=== PATIENT | male | born 1965 | race Caucasian/White ===

== ENCOUNTER 2020-07-07 21:02 | Inpatient (IN) ==
[2020-07-07 21:27] LABS: Basophils # (auto) 0.02 K/uL (0-0.2); Basophils % (auto) 0.2 %; Eosinophils # (auto) 0.16 K/uL (0-0.5); Eosinophils % (auto) 1.3 %; Hematocrit (blood only) 50.3 % (42-52); Hemoglobin 17.6 g/dL (14.0-18.0); Immature Granulocytes # (auto) 0.03 K/uL (0.00-0.02); Immature Granulocytes % (auto) 0.2 %; Lymphocytes % (auto) 24.6 %; Mean Corpuscular Hemoglobin 32.6 pg (25-34); Mean Corpuscular Volume 93.1 fL (80-100); Mean Platelet Volume 10.6 fL (7.4-10.4); Monocytes # (auto) 0.73 K/uL (0.11-0.59); Neutrophils # (auto) 8.27 K/uL (1.4-6.5); Neutrophils % (auto) 67.7 %; Platelet Count 209 K/uL (130-400); RDW Coefficient of Variation 13.1 % (11.5-14.5); RDW Standard Deviation 44.6 fL (36.4-46.3); White Blood Count 12.21 K/uL (4.8-10.8)
[2020-07-07 21:38] LABS: Partial Thromboplastin Ratio 0.9; Partial Thromboplastin Time 24.5 Seconds (21.0-31.0)
[2020-07-07 21:53] LABS: Alanine Aminotransferase 26 U/L (12-78); Albumin Globulin Ratio 1.1 (0.9-2); Albumin Level 3.7 gm/dl (3.4-5.0); Alkaline Phosphatase 91 U/L (45-117); Aspartate Aminotransferase 15 U/L (15-37); BUN Creatinine Ratio 17.8 (10-20); Bilirubin,Total 0.4 mg/dl (0.2-1); Blood Urea Nitrogen 17 mg/dl (7-18); Carbon Dioxide 25 mmol/L (21-32); Chloride 105 mmol/L (98-107); Est GFR (African American) 101.4 ml/min; Est GFR (Non-African American) 87.5 ml/min; Globulin 3.4 gm/dl (2.5-4.0); Glucose 215 mg/dl (70-99); Lipase 262 U/L (73-393); Potassium 3.9 mmol/L (3.5-5.1); Sodium 136 mmol/L (136-145); Total Protein 7.1 gm/dl (6.4-8.2); Troponin I < 0.015 ng/ml (0-0.045)
--- NOTE | 2020-07-07 23:04 | Emergency Department Note ---
Impression & Plan Chest pain, Non-ST elevation NM (NSTEMI) ED Provider Note Provider: Harrison Fowler MD DATE OF SERVICE: 07/07/2020 CHIEF COMPLAINT: Chest pain HISTORY OF PRESENT ILLNESS: Patient is a 54-year-old gentleman history of CAD with NM 3 years ago as well as [id number] diabetes presenting here today reporting onset at 815 this evening while in the shower of some central chest discomfort and pressure with some slight tingling in his left arm. Denies any nausea or abdominal pain. Denies any syncope or feeling faint. Patient noted his blood pressure was elevated after this. Patient did have an NM he reports in [place] 3 years ago and had 100% occlusion of RCA and 50% occlusions of his left-sided vessels. Not received stenting in the left-sided vessels of his heart he reports. Has been on Plavix and aspirin since as well as lisinopril. Denies any recent exertional issues. Pain lasted tonight approximately an hour and resolved just upon arrival here. States it did feel somewhat similar to the prior event several years ago but again symptoms have resolved and they were less severe today than previously. Patient states he does smoke. Denies any leg swelling. REVIEW OF SYSTEMS: A total of 10 review of systems was obtained and negative except as stated above in the HPI. PAST MEDICAL HISTORY: As noted above MEDICATIONS: Reviewed home medications with the patient SOCIAL HISTORY: Smoker, , from [place] but working the area on [employer] PHYSICAL EXAM: GENERAL: alert and oriented in no acute distress on stretcher Head: normocephalic and atraumatic EYES: No injection, discharge or icterus. NECK: Trachea midline. ENT: Mucous membranes pink and moist. LUNGS: Airway patent. No retractions. Breath sounds clear with good air entry bilaterally. HEART: Regular rate and rhythm. No chest wall tenderness ABDOMEN: Soft and non-tender, without guarding or rebound. SKIN: Acyanotic, warm, dry, without rashes EXTREMITIES: Without swelling, tenderness or deformity NEUROLOGICAL: No focal deficits. No aphasia. No facial droop or slurred speech. Ambulatory. EK bpm normal sinus rhythm. No PVC or PAC. No acute ST segment elevation or depression appreciated. QTc 440. EKG #2: 79 bpm normal sinus rhythm. No PVC or PAC. No acute ST segment el evation or depression appreciated. QTc 438. In comparison to previous from earlier at 9:07 PM, no significant changes CONTINUOUS CARDIAC MONITORING: was ordered and showed a heart rate of 70s to 80s bpm in normal sinus rhythm 1 view chest x-ray primary capitation no evidence of pneumonia or pneumothorax. No cardiomegaly noted. Patient's laboratory studies and imaging reviewed. Differential includes Cardiac ischemia, aortic dissection, pulmonary embolism, pneumothorax, pneumonia, pericarditis, myocarditis, esophageal rupture, GERD, cholecystitis, pancreatitis, musculoskeletal, as well as other pathologies. IMPRESSION/MEDICAL DECISION MAKING: Patient presents complaining of chest discomfort. Initial EKG here without significant changes. No priors available as from out of the area. Patient's pain is subsided. Does have significant risk factors given his age and history. No exertional symptoms reported. Patient has been on aspirin and Plavix. Initial troponin is negative. Discussed with him and his limitations of testing including delay in troponin elevations. Recommended to the patient that he be observed here overnight for serial troponins and cardiac evaluation. He declined this initially. Was a moderate risk heart score. Patient states he would be willing to stay for a 4-hour troponin after the onset of symptoms around 1230 tonight. Patient states is imperative that he goes to work and since he is no longer having chest pain he wants to do this. His blood pressure is improved here believe earlier blood pressure likely related to stress and his discomfort. Given his improvement of symptoms doubt aortic dissection. Denies significant shortness of breath and resolution lower suspicion at this time for acute PE. Chest x-ray is unremarkable here. Again patient was agreeable for repeat EKG and troponin and this was completed. Repeat troponin was completed obtained just over 4 hours after initial symptoms and again currently has resolution of his chest symptoms now. Patient is a moderate risk heart score. Troponin does come back elevated at 0.159. Patient given additional aspirin beyond his daily aspirin. Heparin drip ordered. Discu ssed with him the importance of staying and further cardiac work-up. He acknowledged this. His was updated at bedside. Hospitalist will be contacted. Covid test ordered although doubt he has this. DIAGNOSIS: Chest pain, NSTEMI DISPOSITION: Being evaluated by the hospitalist Patient was agreeable with this plan. Critical Care I have personally spent 42 minutes of critical care time in the direct management of this patient. This includes bedside care, interpretation of diagnostic studies, and testing, discussion with consultants, patient, and family members, and other required patient management activities. These 42 minutes is in excess of all separately billable procedures. Past Med/Surg History Social History Smoking Status: Current every day smoker Tobacco Type: Cigarettes Preferred Language: Gabonese Allergies Allergies Allergy/AdvReac Type Severity Reaction Status Date / Time No Known Allergies Allergy Unverified 07/07/20 23:39 Home Meds Home Medications Medication Instructions Recorded Confirmed aspirin [Aspirin Low Dose] 81 mg PO DAILY 07/07/20 07/07/20 atorvastatin 40 mg PO DAILY 07/07/20 07/07/20 carvedilol 6.25 mg PO Q12 07/07/20 07/07/20 empagliflozin [Jardiance] 10 mg PO DAILY 07/07/20 07/07/20 lisinopril 5 mg PO DAILY 07/07/20 07/07/20 metformin 1,000 mg PO BID 07/07/20 07/07/20 Results & Data (ED) Vital Signs Vital Signs - 24 hr 07/07/20 21:07 07/07/20 22:04 07/07/20 22:16 Temperature 36.8 C Temperature Source Oral Pulse Rate 88 84 Pulse Rate [Right] Pulse Rate from SpO2 Sensor 83 Pulse Rhythm [Right] Pulse Strength [Right] Respiratory Rate 16 22 Respiratory Effort / Characteristics Non-Labored Spontaneous Respiratory Depth Normal Respiratory Pattern Regular Blood Pressure 159/93 H 127/81 Blood Pressure [Right Arm] Blood Pressure Mean 115 96 Blood Pressure Mean [Right Arm] Blood Pressure Position Sitting Blood Pressure Position [Right Arm] Pulse Oximetry 99 98 97 Oxygen Delivery Method Room Air Room Air Sepsis Recent Fever Within 48 Hours No Sepsis New/Unexplained Change in Mental Status No Sepsis Action Taken by Nursing No Action Required 07/07/20 22:19 07/07/20 22:20 07/07/20 22:30 Temperature Temperature Source Pulse Rate 81 89 86 Pulse Rate [Right] Pulse Rate from SpO2 Sensor 82 85 86 Pulse Rhythm [Right] Pulse Strength [Right] Respiratory Rate 21 22 Respiratory Effort / Characteristics Respiratory Depth Respiratory Pattern Blood Pressure 119/59 L Blood Pressure [Right Arm] Blood Pressure Mean 79 Blood Pressure Mean [Right Arm] Blood Pressure Position Blood Pressure Position [Right Arm] Pulse Oximetry 97 96 96 Oxygen Delivery Method Sepsis Recent Fever Within 48 Hours Sepsis New/Unexplained Change in Mental Status Sepsis Action Taken by Nursing 07/07/20 22:40 07/07/20 22:50 07/07/20 23:24 Temperature Temperature Source Pulse Rate 85 86 Pulse Rate [Right] 81 Pulse Rate from SpO2 Sensor 85 86 Pulse Rhythm [Right] Regular Pulse Strength [Right] Respiratory Rate 15 16 16 Respiratory Effort / Characteristics Non-Labored Spontaneous Respiratory Depth Normal Respiratory Pattern Blood Pressure Blood Pressure [Right Arm] 113/73 Blood Pressure Mean Blood Pressure Mean [Right Arm] 86 Blood Pressure Position Blood Pressure Position [Right Arm] Lying Pulse Oximetry 95 96 96 Oxygen Delivery Method Room Air Sepsis Recent Fever Within 48 Hours Sepsis New/Unexplained Change in Mental Status Sepsis Action Taken by Nursing 07/08/20 00:51 Temperature Temperature Source Pulse Rate Pulse Rate [Right] 80 Pulse Rate from SpO2 Sensor Pulse Rhythm [Right] Regular Pulse Strength [Right] Normal Respiratory Rate 16 Respiratory Effort / Characteristics Non-Labored Spontaneous Respiratory Depth Normal Respiratory Pattern Blood Pressure Blood Pressure [Right Arm] 125/76 Blood Pressure Mean Blood Pressure Mean [Right Arm] 92 Blood Pressure Position Blood Pressure Position [Right Arm] Lying Pulse Oximetry 96 Oxygen Delivery Method Room Air Sepsis Recent Fever Within 48 Hours Sepsis New/Unexplained Change in Mental Status Sepsis Action Taken by Nursing Laboratory Data Result diagrams: 07/07/20 21:17 07/07/20 21:17 Lab Results 07/07/20 07/07/20 07/07/20 Range/Units 21:17 21:17 21:17 WBC 12.21 H (4.8-10.8) K/uL RBC 5.40 (4.7-6.1) M/uL Hgb 17.6 (14.0-18.0) g/dL Hct 50.3 (42-52) % MCV 93.1 (80-100) fL MCH 32.6 (25-34) pg MCHC 35.0 (32-36) g/dL RDW Std Deviation 44.6 (36.4-46.3) fL RDW Coeff of Jolene 13.1 (11.5-14.5) % Plt Count 209 (130-400) K/uL MPV 10.6 H (7.4-10.4) fL Immature Gran % (Auto) 0.2 % Neut % (Auto) 67.7 % Lymph % (Auto) 24.6 % [place] % (Auto) 6.0 % Eos % (Auto) 1.3 % Baso % (Auto) 0.2 % Neut # (Auto) 8.27 H (1.4-6.5) K/uL Lymph # (Auto) 3.00 (1.2-3.4) K/uL [place] # (Auto) 0.73 H (0.11-0.59) K/uL Eos # (Auto) 0.16 (0-0.5) K/uL Baso # (Auto) 0.02 (0-0.2) K/uL Immature Gran # (Auto) 0.03 H (0.00-0.02) K/uL APTT 24.5 (21.0-31.0) Seconds PTT Ratio 0.9 Sodium 136 (136-145) mmol/L Potassium 3.9 (3.5-5.1) mmol/L Chloride 105 (98-107) mmol/L Carbon Dioxide 25 (21-32) mmol/L Anion Gap 6.0 (3-11) BUN 17 (7-18) mg/dl Creatinine 0.97 (0.6-1.4) mg/dl Est Cr Clr Drug Dosing 100.0 ml/min Est GFR ( Amer) 101.4 ml/min Est GFR (Non-Af Amer) 87.5 ml/min BUN/Creatinine Ratio 17.8 (10-20) Glucose 215 H (70-99) mg/dl Calcium 9.0 (8.5-10.1) mg/dl Total Bilirubin 0.4 (0.2-1) mg/dl AST 15 (15-37) U/L ALT 26 (12-78) U/L Alkaline Phosphatase 91 (45-117) U/L Troponin I < 0.015 (0-0.045) ng/ml Total Protein 7.1 (6.4-8.2) gm/dl Albumin 3.7 (3.4-5.0) gm/dl Globulin 3.4 (2.5-4.0) gm/dl Albumin/Globulin Ratio 1.1 (0.9-2) Lipase 262 (73-393) U/L Specimen Hemolysis Discharge Plan Visit Data Chief Complaint: Chest Pain Stated Complaint: CHEST PAIN, TINGLE IN L ARM, HIGH BLOOD PRESSURE ED Provider: Harrison Fowler Discharge Problem: Chest pain, Non-ST elevation NM (NSTEMI) Patient Disposition: Being Evaluated by Hospitalist Condition: Good Forms Stand Alone Forms: My [facility] [employer] Prescriptions Prescriptions: No Action atorvastatin 40 mg tablet 40 mg PO DAILY RF: 0 carvedilol 6.25 mg tablet 6.25 mg PO Q12 RF: 0 aspirin [Aspirin Low Dose] 81 mg Tablet,Delayed Release (Dr/Ec) 81 mg PO DAILY RF: 0 metformin 1,000 mg tablet 1,000 mg PO BID RF: 0 lisinopril 5 mg tablet 5 mg PO DAILY RF: 0 Jardiance 10 mg tablet 10 mg PO DAILY RF: 0 Referrals Referrals: PCP,NO [Primary Care Provider] - Discharge Problem: Chest pain Qualifiers: Chest pain type: unspecified Qualified Code(s): R07.9 - Chest pain, unspecified
[2020-07-08] MEDS ORDERED: Heparin IV Adult Wt-Based Low-Dose WITH Bolus Protocol STA (01:19)
[2020-07-08] MEDS ORDERED: ASPIRIN CHEW 324 MG PO STA (01:19)
[2020-07-08] MEDS ORDERED: HEPARIN SODIUM/DEXTROSE 25,000 UNITS/500 ML BAG IV SCH (01:34)
[2020-07-08] MEDS ORDERED: HEPARIN SOD (PORCINE) 1000 UNIT/ML IV ONE ×2 (01:34→02:30)
--- NOTE | 2020-07-08 02:43 | History & Physical Report ---
Date of Service July 08, 2020 Assessment & Plan (1) CAD (coronary artery disease), [place] coronary artery: Chest pain/elevated troponin/CAD/history of UT/hypertension- The patient will be admitted to telemetry for serial cardiac enzymes, serial EKG's, cardiac rhythm monitoring and a 2-D echocardiogram with Dopplers. Continue aspirin, carvedilol and lisinopril. Continue heparin drip begun in the ED Patient reports having at least 3 lesions from his previous cardiac catheterization as he is aware of, reporting one that is 100% and 2 more that are 50% Consult cardiology Present on Admission?: Yes (2) Hypertension: See above Present on Admission?: Yes (3) History of UT (myocardial infarction): See above Present on Admission?: Yes (4) Chest pain: See above Present on Admission?: Yes (5) Elevated troponin I level: See above Present on Admission?: Yes (6) Hyperlipidemia LDL goal <70: Continue atorvastatin. Check a fasting lipid panel Present on Admission?: Yes (7) Diabetes mellitus: Hold Metformin and Jardiance. Placed on Accu-Cheks before meals and at bedtime with NovoLog coverage per scale Check hemoglobin A1c Present on Admission?: Yes History of Present Illness Chief Complaint: Patient presents to emergency department with complaint of chest pain and pressure with some slight tingling in his left arm that began while he was in the shower at about 8:15 PM this evening. Primary Care Provider: NO PCP The patient is a 54-year-old male with a past medical history including CAD/history of UT 3 years ago/cardiac catheterization showing a 100% lesion and two 50% lesions, hyperlipidemia, hypertension, and diabetes mellitus. He presents with symptoms as noted above. 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 The symptoms today are the first symptoms he is had since his initial UT 3 years ago. He denies any recent change in physical activities, and in fact reports he was been sitting while working around for the past 3 days. He reports taking his medications, including aspirin, lisinopril and carvedilol as directed, and had previously been on clopidogrel as well. Allergies Allergy/AdvReac Type Severity Reaction Status Date / Time No Known Allergies Allergy Unverified 07/07/20 23:39 Home Medications Medication Instructions Recorded Confirmed Type aspirin [Aspirin Low Dose] 81 mg PO DAILY 07/07/20 07/07/20 History atorvastatin 40 mg PO DAILY 07/07/20 07/07/20 History carvedilol 6.25 mg PO Q12 07/07/20 07/07/20 History empagliflozin [Jardiance] 10 mg PO DAILY 07/07/20 07/07/20 History lisinopril 5 mg PO DAILY 07/07/20 07/07/20 History metformin 1,000 mg PO BID 07/07/20 07/07/20 History Past Med/Surg History Medical History (Updated 07/08/20 @ 06:10 by Giuliano Moon MD) CAD (coronary artery disease), [place] coronary artery Diabetes mellitus History of UT (myocardial infarction) Hyperlipidemia LDL goal <70 Hypertension Social History Smoking Status: Current every day smoker Tobacco Type: Cigarettes Hx Alcohol Use: No Hx Substance Use: No Preferred Language: Monegasque Communication Ability: Effective 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 Beliefs That Will Affect Care: None Current Living Situation: Spouse Other Information That Helps Us Care for You: No Feels Safe at Home: Yes Safety Concerns: Feels Safe At This Time Review of Systems Review of Systems: The patient denies palpitations, shortness of breath, dyspnea on exertion, cough, lower extremity swelling, sore throat, fevers, chills, sweats, fatigue, nausea, vomiting, diarrhea , constipation, abdominal pain, pelvic pain, blood in urine or stool, dysuria, urinary frequency or urgency, lightheadedness, dizziness, headache, memory loss, loss of consciousness, rash, abnormal bruising or bleeding, imbalance, focal or generalized weakness, numbness or tingling in legs, generalized arthralgias or myalgias, back or neck pain, or night sweats. The review of systems is otherwise negative other than for that already noted above, and at least 10 systems have been reviewed. Physical Exam Physical Exam: The patient is awake, alert and oriented 3, well developed and well nourished, normocephalic and atraumatic, lying in bed and in no acute distress. HEENT--PERRL, EOMI, mucous membranes and oropharynx dry. Neck--supple. No JVD. No bruits. Thyroid normal, trachea midline, no adenopat hy. Heart--normal S1 and S2. No murmurs, rubs or gallops. Lungs--clear bilaterally, no respiratory distress, no accessory muscle use. Abdomen--normal bowel sounds and soft. Nontender. Nondistended, no hernias or masses, no organomegaly. Extremities--no cyanosis or clubbing. No edema. There are good distal pulses b/l. Dermatologic--normal skin turgor, normal color, no abnormal lymph nodes, no kaitlin h. Neurologic--cranial nerves II through XII grossly intact. Rheumatologic--normal range of motion. Psychiatric--normal affect. Results & Data Results & Data ([facility]) Vital Signs (Past 12 Hours) Vital Signs Temp Pulse Pulse Resp BP BP Pulse Ox 07/08/20 02:39 69 16 110/73 98 07/08/20 00:51 80 16 125/76 96 07/07/20 23:24 81 16 113/73 96 07/07/20 22:50 86 16 96 07/07/20 22:40 85 15 95 07/07/20 22:30 86 119/59 L 96 07/07/20 22:20 89 22 96 07/07/20 22:19 81 21 97 07/07/20 22:16 84 22 127/81 97 07/07/20 22:04 98 07/07/20 21:07 98.2 F 88 16 159/93 H 99 Laboratory Results Laboratory Results WBC 12.21 K/uL (4.8-10.8) H 07/07/20 21:17 RBC 5.40 M/uL (4.7-6.1) 07/07/20 21:17 Hgb 17.6 g/dL (14.0-18.0) 07/07/20 21:17 Hct 50.3 % (42-52) 07/07/20 21:17 MCV 93.1 fL (80-100) 07/07/20 21:17 MCH 32.6 pg (25-34) 07/07/20 21: MCHC 35.0 g/dL (32-36) 07/07/20 21:17 RDW Std Deviation 44.6 fL (36.4-46.3) 07/07/20 21: RDW Coeff of Jolene 13.1 % (11.5-14.5) 07/07/20 21: Plt Count 209 K/uL (130-400) 07/07/20 21:17 MPV 10.6 fL (7.4-10.4) H 07/07/20 21:17 Immature Gran % (Auto) 0.2 % 07/07/20 21:17 Neut % (Auto) 67.7 % 07/07/20 21:17 Lymph % (Auto) 24.6 % 07/07/20 21:17 [place] % (Auto) 6.0 % 07/07/20 21:17 Eos % (Auto) 1.3 % 07/07/20 21:17 Baso % (Auto) 0.2 % 07/07/20 21:17 Neut # (Auto) 8.27 K/uL (1.4-6.5) H 07/07/20 21:17 Lymph # (Auto) 3.00 K/uL (1.2-3.4) 07/07/20 21:17 [place] # (Auto) 0.73 K/uL (0.11-0.59) H 07/07/20 21:17 Eos # (Auto) 0.16 K/uL (0-0.5) 07/07/20 21:17 Baso # (Auto) 0.02 K/uL (0-0.2) 07/07/20 21:17 Immature Gran # (Auto) 0.03 K/uL (0.00-0.02) H 07/07/20 21:17 PT 10.3 Seconds (9.0-12.0) 07/08/20 02:41 INR 1.0 (0.9-1.1) 07/08/20 02:41 APTT 28.4 Seconds (21.0-31.0) 07/08/20 02:41 PTT Ratio 1.1 07/08/20 02:41 Sodium 136 mmol/L (136-145) 07/07/20 21:17 Potassium 3.9 mmol/L (3.5-5.1) 07/07/20 21:17 Chloride 105 mmol/L (98-107) 07/07/20 21:17 Carbon Dioxide 25 mmol/L (21-32) 07/07/20 21:17 Anion Gap 6.0 (3-11) 07/07/20 21:17 BUN 17 mg/dl (7-18) 07/07/20 21:17 Creatinine 0.97 mg/dl (0.6-1.4) 07/07/20 21:17 Est Cr Clr Drug Dosing 100.0 ml/min 07/07/20 21:17 Est GFR ( Amer) 101.4 ml/min 07/07/20 21:17 Est GFR (Non-Af Amer) 87.5 ml/min 07/07/20 21:17 BUN/Creatinine Ratio 17.8 (10-20) 07/07/20 21:17 Glucose 215 mg/dl (70-99) H 07/07/20 21:17 Calcium 9.0 mg/dl (8.5-10.1) 07/07/20 21:17 Total Bilirubin 0.4 mg/dl (0.2-1) 07/07/20 21:17 AST 15 U/L (15-37) 07/07/20 21:17 ALT 26 U/L (12-78) 07/07/20 21:17 Alkaline Phosphatase 91 U/L (45-117) 07/07/20 21:17 Troponin I 0.159 ng/ml (0-0.045) H* 07/08/20 00:25 Total Protein 7.1 gm/dl (6.4-8.2) 07/07/20 21:17 Albumin 3.7 gm/dl (3.4-5.0) 07/07/20 21:17 Globulin 3.4 gm/dl (2.5-4.0) 07/07/20 21:17 Albumin/Globulin Ratio 1.1 (0.9-2) 07/07/20 21:17 Lipase 262 U/L (73-393) 07/07/20 21:17 Specimen Hemolysis 07/07/20 21:17 COVID-19 Eval Order Covid19 at [facility] 07/08/20 01:47 SARS-CoV-2 (PCR) NEGATIVE (Negative) 07/08/20 01:47 Code Status & VTE Plan Code Status Full code VTE Prophylaxis Plan VTE Prophylaxis will be ordered: Yes PG Care Time/CCT Total # of Minutes Spent Total Time Spent with Patient: Total time spent is greater than 50% in coordination of care (as documented) at patient's floor/unit and/or counseling patient: Coding Level of Care Code 99356 Initial Inpt Care Lvl 3 Diagnoses CAD (coronary artery disease), [place] coronary artery I25.10 Hypertension I10 History of UT (myocardial infarction) I25.2 Chest pain R07.9 Chest pain type: unspecified Elevated troponin I level R77.8 Hyperlipidemia LDL goal <70 E78.5 Diabetes mellitus E11.9 (1) Chest pain Chest pain type: unspecified Qualified Code(s): R07.9 - Chest pain, unspecified
[2020-07-08 03:00] LABS: Partial Thromboplastin Ratio 1.1; Partial Thromboplastin Time 28.4 Seconds (21.0-31.0); Prothrombin Time 10.3 Seconds (9.0-12.0)
[2020-07-08] MEDS ORDERED: NITROGLYCERIN SL 0.4 MG/TAB TAB SL PRN (04:16)
[2020-07-08] MEDS ORDERED: ONDANSETRON INJ 2 MG/ML 2 ML VIAL IV PRN (04:16)
[2020-07-08] MEDS ORDERED: GLUCOSE 10 TABS/TUBE PO PRN (04:16)
[2020-07-08] MEDS ORDERED: DEXTROSE 50% 50 ML SYRINGE IV PRN (04:16)
[2020-07-08] MEDS ORDERED: ACETAMINOPHEN 325 MG TAB PO PRN (04:16)
[2020-07-08] MEDS ORDERED: CARBOHYDRATES FOR HYPOGLYCEMIA PO PRN (04:16)
[2020-07-08] MEDS ORDERED: GLUCAGON FOR INJ 1 MG VIAL SQ PRN (04:16)
[2020-07-08] MEDS ORDERED: GLUCOSE 40% GEL 15 GM TUBE PO PRN (04:16)
[2020-07-08 06:23] LABS: Basophils # (auto) 0.02 K/uL (0-0.2); Basophils % (auto) 0.2 %; Eosinophils # (auto) 0.14 K/uL (0-0.5); Eosinophils % (auto) 1.4 %; Estimated Average Glucose 180 mg/dl; Hemoglobin 16.6 g/dL (14.0-18.0); Hemoglobin A1C 7.9 % (4.5-5.6); Immature Granulocytes # (auto) 0.02 K/uL (0.00-0.02); Immature Granulocytes % (auto) 0.2 %; Lymphocytes # (auto) 2.43 K/uL (1.2-3.4); Lymphocytes % (auto) 24.3 %; Mean Corpuscular Hemoglobin 31.9 pg (25-34); Mean Corpuscular Hgb Conc 33.9 g/dL (32-36); Mean Platelet Volume 10.9 fL (7.4-10.4); Monocytes # (auto) 0.79 K/uL (0.11-0.59); Monocytes % (auto) 7.9 %; Platelet Count 207 K/uL (130-400); RDW Standard Deviation 45.2 fL (36.4-46.3); Red Blood Count 5.21 M/uL (4.7-6.1)
[2020-07-08 06:38] LABS: Prothrombin Time 10.3 Seconds (9.0-12.0)
[2020-07-08 06:59] LABS: Albumin Level 3.5 gm/dl (3.4-5.0); BUN Creatinine Ratio 23.9 (10-20); Calcium 8.7 mg/dl (8.5-10.1); Creatinine Clr Calc Pharmacy 131.1 ml/min; Est GFR (African American) 120.4 ml/min; Est GFR (Non-African American) 103.8 ml/min; Potassium 3.8 mmol/L (3.5-5.1)
[2020-07-08 07:12] LABS: Albumin Globulin Ratio 1.1 (0.9-2); Bilirubin,Total 0.4 mg/dl (0.2-1); Globulin 3.1 gm/dl (2.5-4.0); Total Protein 6.6 gm/dl (6.4-8.2); Troponin I 1.19 ng/ml (0-0.045)
[2020-07-08] MEDS: lisinopril 5 MG TAB PO SCH (08:25)
[2020-07-08] MEDS: carvediloL 6.25 MG TAB PO SCH ×2 (08:25→19:23)
[2020-07-08] MEDS: ATORVASTATIN 40 MG TAB PO SCH (08:25)
[2020-07-08] MEDS: ASPIRIN 81 MG ECTAB PO SCH (08:26)
[2020-07-08] MEDS: INSULIN ASPART 100 UNITS/ML 3 ML PEN SC SCH ×4 (08:28→21:07)
[2020-07-08 08:49] LABS: Partial Thromboplastin Ratio 1.1; Partial Thromboplastin Time 29.9 Seconds (21.0-31.0)
--- NOTE | 2020-07-08 08:54 | XRay Report ---
SINGLE VIEW CHEST CLINICAL HISTORY: Atypical chest pain. FINDINGS: 2 AP, portable, upright chest radiographs are obtained. No prior studies are available for comparison at the time of dictation. The cardiomediastinal silhouette is unremarkable. There is mild bibasilar atelectasis. The lungs and pleural spaces are otherwise clear. No pneumothorax is seen. Th e bony thorax is grossly intact. IMPRESSION: No active disease in the chest. ACT 112: Negative or not required by law. Electronically signed by: Joseph Lance M.D. 07/08/2020 8:52 AM
--- NOTE | 2020-07-08 10:09 | Cardiology Consultation ---
Date of Consultation July 08, 2020 Assessment & Plan (1) Non-ST elevation HI (NSTEMI): 2. Preserved LV function with mild inferior hypokinesis 3. Asymptomatic SVT 4. Hypertension 5. Type 2 diabetes Patient here with high risk NSTEMI in the setting of known CAD. Recommend proceeding with cardiac catheterization for risk stratification. Discussed with patient risks, benefits, alternatives of procedure and he is willing to proceed. Reportedly patient has an occluded RCA with moderate left system disease. We discussed potential that pending findings he may need CABG in the setting of his diabetes. Patient ate breakfast this morning and will plan on performing procedure later this afternoon. Please keep n.p.o. Continue heparin infusion. Continue home aspirin, beta-alonzo, LEO and statin. History of Present Illness Attending Physician: London Briones MD History of Present Illness Mr. Kim is a very pleasant 54-year-old man seen today due to NSTEMI. Past medical history remarkable for CAD, type 2 diabetes, hypertension. Ongoing tobacco use. CAD diagnosed in the setting of HI 3 years ago back near his home in [place]. Per patient report had what sounds to be an occluded RCA for which 2 attempts at intervention were undertaken but ultimately managed medically in the setting of reported collaterals. Also reportedly had moderate left system disease that time. Has done well since then without recurrent chest pain. Yesterday was in the shower when developed substernal chest pain with associated left arm numbness. Pain lasted approximately an hour resolving in ED. No recurrent symptoms since admission. Pain similar to what he had with his prior HI but less severe. ECG with sinus rhythm and no dynamic ST changes. Initial troponin negative, subsequently up to 0.16 now trending down. Echo showed preserved LV function with mild basal inferior hypokinesis. Telemetry overnight sinus rhythm with one brief episode of SVT approximately 10 seconds, asymptomatic. Family history: Multiple first-degree relatives with premature CAD, 1 brother with multiple stents, one brother post CABG. Social history: From [place]. 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 . Allergies Allergy/AdvReac Type Severity Reaction Status Date / Time No Known Allergies Allergy Unverified 07/07/20 23:39 Home Medications Medication Instructions Recorded Confirmed Type aspirin [Aspirin Low Dose] 81 mg PO DAILY 07/07/20 07/07/20 History atorvastatin 40 mg PO DAILY 07/07/20 07/07/20 History carvedilol 6.25 mg PO Q12 07/07/20 07/07/20 History empagliflozin [Jardiance] 10 mg PO DAILY 07/07/20 07/07/20 History lisinopril 5 mg PO DAILY 07/07/20 07/07/20 History metformin 1,000 mg PO BID 07/07/20 07/07/20 History Patient History Medical History (Updated 07/08/20 @ 06:10 by Giuliano Moon MD) CAD (coronary artery disease), [place] coronary artery Diabetes mellitus History of HI (myocardial infarction) Hyperlipidemia LDL goal <70 Hypertension Social History Smoking Status: Current every day smoker Tobacco Type: Cigarettes Hx Alcohol Use: No Hx Substance Use: No Preferred Language: Ecuadorean Communication Ability: Effective Box Annealer Required: No Beliefs That Will Affect Care: None Current Living Situation: Spouse Other Information That Helps Us Care for You: No Feels Safe at Home: Yes Safety Concerns: Feels Safe At This Time Assistive Devices: None Review of Systems Review of Systems: All systems reviewed & are unremarkable except as noted in HPI & below Physical Exam Physical Exam: General: Comfortable, no acute distress HEENT: Sclerae anicteric, mucous membranes moist Lungs: Clear to auscultation bilaterally, no rhonchi or wheezes Cardiac: Regular rate and rhythm, no murmurs. No JVD. Abdomen: Soft, nontender, nondistended, positive bowel sounds. Extremities: Warm, well perfused, no edema. 2+ radial pulses Skin: No rashes or lesions. Neuro: Nonfocal Psych: Alert orient x3, normal affect and mood Results & Data ([facility]) Vital Signs (Past 12 Hours) Vital Signs Temp Pulse Pulse Resp BP BP Pulse Ox 07/08/20 07:24 98.1 F 78 18 105/61 96 07/08/20 04:16 07/08/20 03:55 80 16 111/70 99 07/08/20 02:39 69 16 110/73 98 07/08/20 00:51 80 16 125/76 96 07/07/20 23:24 81 16 113/73 96 07/07/20 22:50 86 16 96 07/07/20 22:40 85 15 95 07/07/20 22:30 86 119/59 L 96 07/07/20 22:20 89 22 96 07/07/20 22:19 81 21 97 07/07/20 22:16 84 22 127/81 97 Pulse Ox 07/08/20 07:24 07/08/20 04:16 99 07/08/20 03:55 07/08/20 02:39 07/08/20 00:51 07/07/20 23:24 07/07/20 22:50 07/07/20 22:40 07/07/20 22:30 07/07/20 22:20 07/07/20 22:19 07/07/20 22:16 PG Care Time/CCT Total # of Minutes Spent Total Time Spent with Patient: Total time spent is greater than 50% in coordination of care (as documented) at patient's floor/unit and/or counseling patient: Coding Level of Care Code 73418 Inpt Consult Level 4 Diagnoses Non-ST elevation HI (NSTEMI) I21.4
[2020-07-08] MEDS ORDERED: HEPARIN (PORCINE) 1000 UNIT/ML 10 ML (CATH LAB USE ONLY) ONE ×2 (10:25→14:35)
[2020-07-08] MEDS ORDERED: niCARdipine HCL INJ 2.5 MG/ML 10 ML AMP ONE (10:25)
[2020-07-08] MEDS ORDERED: MIDAZOLAM HCL 1 MG/ML 2ML VIAL ONE ×2 (10:25→14:33)
[2020-07-08] MEDS ORDERED: NITROGLYCERIN/D5W 100MCG/ML 20ML SYR ONE (10:26)
[2020-07-08] MEDS ORDERED: fentaNYL citrate 100 MCG/2 ML VIAL ONE ×2 (10:26→14:50)
--- NOTE | 2020-07-08 10:43 | XCELERA ---
[id number]
--- NOTE | 2020-07-08 13:40 | Electrocardiogram Report ---
Test Reason : Blood Pressure : / mmHG Vent. Rate : 087 BPM Atrial Rate : 087 BPM P-R Int : 148 ms QRS Dur : 082 ms QT Int : 366 ms P-R-T Axes : 076 048 087 degrees QTc Int : 440 ms Normal sinus rhythm Septal infarct , age undetermined Abnormal ECG No previous ECGs available Confirmed by Jeb aNva ([id number]) on 07/08/2020 1:39:47 PM Referred By: REFERRED SELF Confirmed By:Jeb Nava
--- NOTE | 2020-07-08 13:42 | Electrocardiogram Report ---
Test Reason : Blood Pressure : / mmHG Vent. Rate : 079 BPM Atrial Rate : 079 BPM P-R Int : 170 ms QRS Dur : 080 ms QT Int : 382 ms P-R-T Axes : 073 029 079 degrees QTc Int : 438 ms Normal sinus rhythm Normal ECG When compared with ECG of 07-JUL-2020 21:07, (unconfirmed) Criteria for Septal infarct are no longer Present Confirmed by Jeb Nava ([id number]) on 07/08/2020 1:42:14 PM Referred By: REFERRED SELF Confirmed By:Jeb Nava
--- NOTE | 2020-07-08 13:45 | Electrocardiogram Report ---
Test Reason : Blood Pressure : / mmHG Vent. Rate : 067 BPM Atrial Rate : 067 BPM P-R Int : 160 ms QRS Dur : 082 ms QT Int : 408 ms P-R-T Axes : 079 041 080 degrees QTc Int : 431 ms Normal sinus rhythm with sinus arrhythmia Low voltage QRS Borderline ECG When compared with ECG of 08-JUL-2020 00:24, (unconfirmed) No significant change was found Confirmed by Jeb Nava ([id number]) on 07/08/2020 1:45:00 PM Referred By: REFERRED SELF Confirmed By:Jeb Nava
--- NOTE | 2020-07-08 14:07 | Communication Note ---
Date of Service: July 08, 2020 Patient was seen and admitted the same day therefore not be billing for this encounter. Patient was seen and examined by myself in the morning with no chest pain since coming up from the emergency room last night. Elevated troponin suggestive of NSTEMI. Unfortunately patient ate breakfast today prior to n.p.o. order therefore planning on cardiac catheterization later this afternoon. Will review patient following cardiac catheterization. Hemoglobin A1c 7.6. Glucose appears controlled on sliding scale alone at current time.
[2020-07-08] MEDS ORDERED: TICAGRELOR 90 MG TAB PO ONE (14:56)
--- NOTE | 2020-07-08 15:55 | Post Anesthesia Assessment ---
Date of Service July 08, 2020 Post Sedation Assessment Vital Signs Temp Pulse Pulse Resp BP BP Pulse Ox 07/08/20 15:39 98.2 F 67 16 124/65 98 07/08/20 15:18 71 17 99/68 L 92 07/08/20 15:07 71 17 108/67 95 07/08/20 12:46 78 17 107/62 07/08/20 11:13 97.9 F 71 18 98/55 L 96 07/08/20 07:24 98.1 F 78 18 105/61 96 07/08/20 04:16 07/08/20 03:55 80 16 111/70 99 07/08/20 02:39 69 16 110/73 98 07/08/20 00:51 80 16 125/76 96 07/07/20 23:24 81 16 113/73 96 07/07/20 22:50 86 16 96 07/07/20 22:40 85 15 95 07/07/20 22:30 86 119/59 L 96 07/07/20 22:20 89 22 96 07/07/20 22:19 81 21 97 07/07/20 22:16 84 22 127/81 97 07/07/20 22:04 98 07/07/20 21:07 98.2 F 88 16 159/93 H 99 Pulse Ox 07/08/20 15:39 07/08/20 15:18 07/08/20 15:07 07/08/20 12:46 07/08/20 11:13 07/08/20 07:24 07/08/20 04:16 99 07/08/20 03:55 07/08/20 02:39 07/08/20 00:51 07/07/20 23:24 07/07/20 22:50 07/07/20 22:40 07/07/20 22:30 07/07/20 22:20 07/07/20 22:19 07/07/20 22:16 07/07/20 22:04 07/07/20 21:07 Recovery Score Activity: Moves 4 extremities Respiration: Deep Breath/Cough Circulation: +/-20% PreAnes Value Consciousness: Fully Awake Oxygen Saturation: > 92% On Room Air Post Anesthesia Score: 10 Discharge Sedation Level of Care: Fast Track Phase II Post Sedation Plan On clinical assessment, the patient appears to have tolerated the sedation without complications. Patient is recovering as anticipated. Patient will continue to be monitored by nursing and may be discharged when sedation discharge criteria are met per below protocol. Upon Completions of procedure up to 15 minutes continue every 5 minute vital signs and the P.A.R. score; then discharge to a Phase I or Fast Track to Phase II per the following guidelines: * Discharge Patient to appropriate Phase II area if PAR is 8 or greater or return to pre- procedure baseline. The post - procedure orders will be as directed. * If PAR score is less than 8 or not return to pre-procedure baseline then patient will follow Phase I monitoring till PAR is reached for Phase II. The Phase I may be done in procedure room or may call to secure a Phase I area. * If naloxone or flumazenil are used for reversal, hold in Phase I for continued monitoring from when last reversal dose was given for a minimum of 60 minutes or longer pending the nurse and/or physician discretion of patient condition before discharge to Phase II. Please call the Sedation Physician to re-evaluate and complete post-note for discharge to Phase II area. Do NOT discharge from procedure sedation or Phase 1 until post- sedation evaluation note is complete by procedure /sedation MD Sedation Discharge Instructions to be given to the patient at discharge to home.
--- NOTE | 2020-07-08 15:56 | Post Operative Brief Note ---
Cardiology Brief Post Op Date of Surgery July 08, 2020 Pre & Post Diagnosis Coronary artery disease Procedure Coronary angiography Left heart catheterization PCI to OM/mid circumflex bifurcation PCI to diagonal Quality Assurance Gregorio Faulkner MD Dynamics Ax Developer Radha Estimated Blood Loss 15 Findings See Below Multivessel CAD Fluids -- Specimens Specimen Description: -- Anesthesia Type RN Sedation Complications none Disposition Accompanied Patient To Recovery: No Disposition: PCU Overlapping Procedure I was present for: the critical portions of procedure. I was immediately available: during the entire case. Back up surgeon: was not required during procedure.
[2020-07-08] MEDS ORDERED: SODIUM CHLORIDE 0.9% 1000ML 1,000 ML IV SCH (17:15)
--- NOTE | 2020-07-08 17:18 | Cardiac Catheterization ---
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 Cardiac Status Clinical evaluation leading to the procedure CAD Presenation: Non STEMI Anginal Classification: CCS III Heart Failure: No Cardiogenic Shock within 24 Hours: No Cardiac Arrest within 24 Hours: No Imaging Studies Past 6 Months: Yes Stress Studies Past 6 Months: No Diagnostic Physicians Name: Gregorio Faulkner MD Status: Elective Closure Device Percutaneous Entry Location: Radial Closure Device: Radial Band Recommendations: PCI without planned CABG PCI Indication: PCI for high risk Non-WAYNE Lesion Segment Name: Mid circumflex/OM3 Culprit Artery: Yes Stenosis Prior to Rx (%): 95 Chronic Total Occlusion: No IVUS: No FFR: No Pre-Procedure ELYSE Flow: 1 (OM3) Previously Treated Lesion: No Lesion Complexity: High/C Lesion Length (mm): 28 Thrombus Present: Yes Bifurcation Lesion: Yes Guidewire Across Lesion: Stenosis Post-Procedure (%): 0 Post-Procedure ELYSE Flow: 3 Devices(s) Deployed: Yes Yes Lesion #2 Segment Name: Diagonal 1 Culprit Artery: No Stenosis Prior to Rx (%): 80 Chronic Total Occlusion: No IVUS: No FFR: No Pre-Procedure ELYSE Flow: 3 Previously Treated Lesion: No Lesion Complexity: Non-High/Non-C Thrombus Present: No Bifurcation Lesion: No Guidewire Across Lesion: Yes Stenosis Post-Procedure (%): 0 Post-Procedure ELYSE Flow: 3 Devices(s) Deployed: Yes Intraprocedure Events Significant Disection: No Perforation: No Cardiac Cath Procedure Full Procedure Date July 08, 2020 Pre-Procedure Diagnosis Pre-Procedure Diagnosis: Non STEMI AUC Score AUC Score: 8 Post-Procedure Diagnosis Post-Procedure Diagnosis: Severe CAD, Successful PCI and Normal Intracardiac Pressures Procedure(s) Performed Procedure(s) Performed: Coronary Angiography, Left Heart Cath and Drug Eluting Stent Covering And Lining Supervisor Gregorio Faulkner MD Industrial Services Worker(s) Radha Estimated Blood Loss Estimated Blood Loss: 15 Medication(s) Medication(s): Fentanyl, Heparin, Lidocaine 1%, Nicardipine, Nitroglycerin and Versed Medication(s): Ticagrelor Summary of Findings Indication: High risk NSTEMI, history of coronary disease with known prior occluded RCA Access: 6 Fr right radial artery Catheters: [place] EBU 3.5 guide Findings: LM -large caliber, no significant disease LAD -large caliber, 40% mid LAD stenosis, distal vessel wraps around LAD. Medium caliber first diagonal with 80% proximal stenosis. Medium caliber D2 without significant disease. Circumflex -codominant, large caliber, acute diffuse mid disease up to 95% at takeoff of OM 3. OM 3 with 99% proximal stenosis and ELYSE I flow. Distal circumflex/left PDA without significant disease. RCA -100% chronic occlusion at ostium. Patent conus branch with collaterals to marginal. Mid/distal RCA, PDA fills via [id number] collaterals from LAD LVEDP -9 -- PCI -- Antithrombotic therapy: Heparin, ticagrelor Procedure: Left main cannulated with EBU 3.5 guide Kitchen Stewardess 50 wire passed across lesion into distal OM3 Prowater wire passed into distal circumflex/left PDA Proximal OM3 lesion predilated with 2.0 compliant balloon Ostium to mid OM 3 stented with 2.25 x 18 mm [place] drug-eluting stent Stent postdilated with stent balloon With the aid of a GuideLiner mid circumflex dilated with 1.5, 2.5 compliant balloons Dilated mid circumflex lesion stented with 2.5 x 30 mm [place] drug-eluting Stent post-dilated with 3.0 noncompliant balloon IC vasodilators administered for spasm Post procedure ELYSE 3 flow, stents well expanded with minimal residual stenosis and no apparent cardiac complications. Kitchen Stewardess 50 wire redirected into first diagonal across proximal stenosis Prowater wire placed into distal LAD Proximal D1 dilated with 2.5 balloon Proximal D1 stented with 2.5 x 12 mm [place] drug-eluting stent Stent postdilated with stent balloon IC vasodilators administered for spasm Post procedure ELYSE 3 flow, stents well expanded with minimal residual stenosis and no apparent cardiac complications. Arterial Closure: TR Band Summary: 1. Severe multivessel coronary artery disease -30 to 40% mid LAD. 80% proximal first diagonal 95% mid circumflex, 99% proximal OM 3 100% proximal RCA chronic total occlusion that fills via LAD to right collaterals. 2. Normal intracardiac filling pressure 3. Successful PCI of mid circumflex/OM 3 bifurcation with 2 drug-eluting stents (T formationcircumflex 2.5 x 38 postdilated with 3.0 NC, OM3 2.25 x 18 [place]). 4. Successful PCI of proximal first diagonal (2.5 x 12 mm [place]) Recommendations: To PCU for continued monitoring Loaded with ticagrelor 180 mg in Pipe Organ Installer Continue dual-antiplatelet therapy for at least 1 year Continue ASCVD risk factor modification. Stop smoking Consult cardiac Rehab Hemodynamics Rest Ao:: Final Ao: LV: / Recommendations Recommendations: PCI without planned CABG Specimens Specimens: None Radiation Exposure (mGy) 4268 Contrast (mls) 175 Fluids (cc crystalloids) Fluids (cc crystalloids): 470 Drains Drains: None Anesthesia Moderate [id number] Procedural Complication(s) None Disposition PCU I attest to the content of the Intraoperative Record and any orders documented therein. Any exceptions are noted below. [facility] Card Cath Procedure Codes Cardiac Catheterization Procedure 1: Cardiovascular Cath Procedures: 86686 Coronaries and LHC (+/-LV) Moderate Sedation Procedure 1: Sedation/Anesthesia: 44955 Mod Sedation by the same physician;Init15 Min Child Age 5 & Up Procedure 2: Sedation/Anesthesia: 87116 Mod Sedation by the same physician; Ea [id number] Minutes Stenting Procedure 1: Cardiovascular Stent Procedures: 76028 Perc transcatheter placement of intracoronary stent(s), with ang Procedure 2: Cardiovascular Stent Procedures: 01557 Ea addl branch of a major coronary artery PG Care Time/CCT Total # of Minutes Spent Total Time Spent with Patient: Total time spent is greater than 50% in coordination of care (as documented) at patient's floor/unit and/or counseling patient:
[2020-07-09] MEDS ORDERED: TICAGRELOR 90 MG TAB PO SCH (03:07)
[2020-07-09 08:11] LABS: Basophils # (auto) 0.01 K/uL (0-0.2); Basophils % (auto) 0.1 %; Eosinophils # (auto) 0.07 K/uL (0-0.5); Eosinophils % (auto) 0.6 %; Hematocrit (blood only) 49.5 % (42-52); Hemoglobin 17.2 g/dL (14.0-18.0); Immature Granulocytes # (auto) 0.02 K/uL (0.00-0.02); Immature Granulocytes % (auto) 0.2 %; Lymphocytes # (auto) 1.86 K/uL (1.2-3.4); Lymphocytes % (auto) 16.6 %; Mean Corpuscular Hemoglobin 32.5 pg (25-34); Mean Corpuscular Hgb Conc 34.7 g/dL (32-36); Mean Corpuscular Volume 93.4 fL (80-100); Mean Platelet Volume 10.7 fL (7.4-10.4); Monocytes # (auto) 0.71 K/uL (0.11-0.59); Monocytes % (auto) 6.3 %; Neutrophils # (auto) 8.53 K/uL (1.4-6.5); Neutrophils % (auto) 76.2 %; Platelet Count 210 K/uL (130-400); RDW Coefficient of Variation 12.9 % (11.5-14.5)
[2020-07-09] MEDS: ATORVASTATIN 40 MG TAB PO SCH (08:13)
[2020-07-09] MEDS: lisinopril 5 MG TAB PO SCH (08:13)
[2020-07-09] MEDS: ASPIRIN 81 MG ECTAB PO SCH (08:13)
[2020-07-09] MEDS: carvediloL 6.25 MG TAB PO SCH (08:13)
[2020-07-09] MEDS: INSULIN ASPART 100 UNITS/ML 3 ML PEN SC SCH (08:14)
[2020-07-09 08:15] LABS: Partial Thromboplastin Time 25.3 Seconds (21.0-31.0); Prothrombin Time 10.2 Seconds (9.0-12.0)
--- NOTE | 2020-07-09 08:16 | Cardiology Progress Note ---
Date of Service July 09, 2020 Assessment & Plan (1) Non-ST elevation VT (NSTEMI): - multivessel CAD post multivessel PCI. 2. Preserved LV function with mild inferior hypokinesis 3. Asymptomatic SVT 4. Hypertension 5. Type 2 diabetes Due to concerns that brilinta was causing his dyspnea last night will switch to prasugrel. Loading dose this morning 60mg. Start 10mg daily going forward tomorrow. Continued DAPT for 1 year. continue home beta-alonzo, LEO, statin. Follow-up with me in 2 weeks. Admission and Anticipated Discharge Date Admission Date: July 08, 2020 Subjective Feeling well this morning no complaints. Brief dyspnea last night. Improved with O2 and has not recurred. Off 02 this morning. Telemetry reviewed -- no events. Review of Systems Review of Systems: All systems reviewed & are unremarkable except as noted in HPI & below Physical Exam Physical Exam: General: Comfortable, no acute distress Lungs: Clear to auscultation bilaterally Cardiac: Regular rate and rhythm, no murmurs. Abdomen: Soft, nontender Extremities: Warm, well perfused, no edema. 2+ RT radial artery pulse, no ecchymosis or hematoma. Skin: No rashes or lesions. Neuro: Nonfocal Psych: Alert orient x3, normal affect and mood Results & Data ([facility]) Vital Signs (Past 12 Hours) Vital Signs Temp Pulse Pulse Resp BP BP Pulse Ox 07/09/20 07:11 97.5 F L 70 18 113/75 97 07/09/20 04:30 98.4 F 66 18 108/65 98 07/08/20 23:45 70 07/08/20 22:45 98.6 F 68 18 100/62 99 07/08/20 21:45 98.1 F 65 18 105/68 2 L 07/08/20 20:45 98.1 F 76 20 108/88 97 PG Care Time/CCT Total # of Minutes Spent Total Time Spent with Patient: Total time spent is greater than 50% in coordination of care (as documented) at patient's floor/unit and/or counseling patient: Coding Level of Care Code 00314 Subseq Hosp Care Lvl 3 Diagnoses Non-ST elevation VT (NSTEMI) I21.4
[2020-07-09] MEDS ORDERED: PRASugrel TAB 10 MG TAB PO ONE (08:30)
[2020-07-09 08:42] LABS: Albumin Level 3.4 gm/dl (3.4-5.0); BUN Creatinine Ratio 18.2 (10-20); Calcium 8.6 mg/dl (8.5-10.1); Est GFR (African American) 118.4 ml/min; Est GFR (Non-African American) 102.2 ml/min; Magnesium 2.2 mg/dl (1.8-2.4); Potassium 3.9 mmol/L (3.5-5.1)
[2020-07-09 08:45] LABS: Albumin Globulin Ratio 1.1 (0.9-2); Bilirubin,Total 0.8 mg/dl (0.2-1); Globulin 3.2 gm/dl (2.5-4.0); Total Protein 6.6 gm/dl (6.4-8.2)
--- NOTE | 2020-07-09 09:47 | Discharge Summary ---
Date of Service July 09, 2020 Admission HPI Per Admitting Provider The patient is a 54-year-old male with a past medical history including CAD/history of MA 3 years ago/cardiac catheterization showing a 100% lesion and two 50% lesions, hyperlipidemia, hypertension, and diabetes mellitus. He presents with symptoms as noted above. 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 The symptoms today are the first symptoms he is had since his initial MA 3 years ago. He denies any recent change in physical activities, and in fact reports he was been sitting while working around for the past 3 days. He reports taking his medic ations, including aspirin, lisinopril and carvedilol as directed, and had previously been on clopidogrel as well. Admission Exam Per Admitting Provider The patient is awake, alert and oriented 3, well developed and well nourished, normocephalic and atraumatic, lying in bed and in no acute distress. HEENT--PERRL, EOMI, mucous membranes and oropharynx dry. Neck--supple. No JVD. No bruits. Thyroid normal, trachea midline, no adenopathy. Heart--normal S1 and S2. No murmurs, rubs or gallops. Lungs--clear bilaterally, no respiratory distress, no accessory muscle use. Abdomen--normal bowel sounds and soft. Nontender. Nondistended, no hernias or masses, no organomegaly. Extremities--no cyanosis or clubbing. No edema. There are good distal pulses b/l. Dermatologic--normal skin turgor, normal color, no abnormal lymph nodes, no rash. Neurologic--cranial nerves II through XII grossly intact. Rheumatologic--normal range of motion. Psychiatric--normal affect. Principal Diagnosis NSTEMI Asymptomatic SVT Discharge Exam Constitutional WD/WN, vitals as above Eyes PERRL, conjunctivae normal, anicteric sclerae Respiratory normal respiratory effort, lungs clear to auscultation Cardiovascular RRR, no murmur, no edema Gastrointestinal (Abdomen) normal bowel sounds, soft, nontender, no hepatosplenomegaly Musculoskeletal no cyanosis or clubbing, extremities motor strength 5/5 Skin no rashes, warm and dry Neurologic moves all extremities and awake; not confused Psychiatric A+Ox3, euthymic affect Discharge Data Allergies Allergy/AdvReac Type Severity Reaction Status Date / Time No Known Allergies Allergy Unverified 07/07/20 23:39 Consultations 07/08/20 01:19 ED Decision to Admit Stat 07/08/20 04:16 Consult Cardiology Routine 07/08/20 17:07 Consult Cardiac Rehabilitation Routine Procedures Performed Operation Date: 07/08/20 10:30 Actual Procedures p Cath, Left with Cors and Vent - Sebas Faulkner MD s Drug Eluting Stent SGl Vessel - Sebas Faulkner MD s Drug Eluting Stent each ADDTL Vessel - Sebas Faulkner MD s Cineradiography w/Routine Exam - Sebas Faulkner MD Ordered Studies 07/08/20 10:32 CL Cath Imgs for PACS use only Routine Hospital Course (1) CAD (coronary artery disease), [place] coronary artery: Beltran Kim is a 54 year old male admitted to [facility] from July 07-2020 due to chest pain. Initial troponin negative but trended up to peak 1.19 ng/ml consistenet with NSTEMI. EKG was positive for criteria for septal infarct. Transthoracic echocardiogram showed mildly hypokinetic basal inferoseptal/inferior/inferolateral segments. He was initially treated with aspirin, SL nitroglycerin and heparin IV drip overnight with resolution of his chest pain in the Emergency room. On July 08, 2020 he was taken for cardiac catheterization (performed by Dr Gregorio Faulkner) which showed severe multivessel coronary artery disease with successful PCI of mid circumflex/OM 3 bifurcation with x2 drug-eluting stents and additional PCI to proximal first diagonal with x1 drug-eluting stent. Initially loaded with Brilinta during cardiac catheterization however due to mild shortness of breath overnight recommended switching to Effient with loading dose taken on July 09. 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 Currently his diabetes is not adequately controlled but reports improving from prior HbA1C > 10. Currently 7.9. Recommended he increase Jardiance from 10 -> 25mg PO daily and follow up with your primary care physician regarding this. Clearly smoking cessation is advised but he declines medical intervention for this currently. Kind regards, Dr London Briones (2) Hypertension: (3) History of MA (myocardial infarction): (4) Chest pain: (5) Elevated troponin I level: (6) Hyperlipidemia LDL goal <70: (7) Diabetes mellitus: Total Time Total Time Spent Total Time Spent (In Minutes): 40 Total Time Includes: Examination of the Patient, Discharge Planning and Medication Reconciliation Discharge Plan Discharge Items Patient Disposition: Home - Self-Care Reason For Visit: NSTEMI Discharge Diagnosis: Heart attack (NSTEMI) Asymptomtic SVT Condition on Discharge: Good Activity: Per Instructions section Non-emergency contact: Primary Care Provider 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 from July 07-2020 due to chest pain. Further evaluation revealed elevated troponin level consistent with a heart attack. EKG was positive for criteria for septal infarct. Transthoracic echocardiogram showed mildly hypokinetic basal inferoseptal/inferior/inferolateral segments. You were treated with aspirin, heparin IV drip overnight with resolution of your chest pain. On July 08, 2020 you were taken for cardiac catheterization which showed severe multivessel coronary artery disease with successful pectineus coronary intervention (PCI) of mid circumflex/OM 3 bifurcation with x2 drug-eluting stents and additional percutaneous coronary intervention of proximal first diagonal with x1 drug- eluting stent. Initially loaded with Brilinta during cardiac catheterization however due to mild shortness of breath overnight recommended switching to Effient with loading dose taken on July 09. Please take all medications prescribed below to avoid post stent thrombus. Please follow-up with cardiology in [place] with consideration for cardiac rehabilitation. Currently your diabetes is not adequately controlled for risk reduction for further cardiovascular disease and recommend increasing Jardiance dose to 25mg PO daily as prescribed below and following up with your primary care physician regarding this. HbA1c 7.9. 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 * No lifting over 2 pounds (approximately a 1/2 gallon of milk) with the utilized arm for 24 hours. * No strenuous activity such as bowling or tennis for 3 days. * Keep the site of the procedure covered with a bandage for 24 hours. *You may shower the day after the procedure. Do not take a tub bath or submerge the puncture site in water for the next 3 days. *Do not operate any motorized equipment for 3 days. SPECIAL CARE INSTRUCTIONS: The site may be slightly bruised and sore following your procedure. Should any of the following occur, contact the Dr. who performed your procedure. 1. Redness/inflammation, swelling, chills, or fever, or colored drainage at procedure site within 3-7 days after your procedure. 2. Coldness, discoloration, ongoing numbness, severe pain, or swelling. Expect mild tingling of hand and tenderness at the puncture site for up to three days. If this persists beyond three days, or other symptoms develop, notify the Dr. who performed your procedure. BLEEDING: If the procedure site on your wrist begins to bleed, do not panic 1. Place 1 or 2 fingers firmly just slightly above the insertion site to stop the bleeding. You may be able to feel your pulse as you hold pressure. 2. Lift your finger after 5 minutes to see if the bleeding has stopped. 3. Once the bleeding has stopped, gently wipe the wrist area clean with a bandage. * If the bleeding from your wrist does not stop after 10 minutes, or if there is a large amount of bleeding or spurting, call 911 (do not drive yourself to the hospital). SKIN IRRITATION: * You may experience some redness and/or swelling in the area where radiation was administered. If any skin irritation occurs, please contact your family physician. FOLLOW UP VISIT: Keep any scheduled doctor appointments. Pending Studies at Discharge: No Studies:: Cardiac catheterization summary: 1. Severe multivessel coronary artery disease -30 to 40% mid LAD. 80% proximal first diagonal 95% mid circumflex, 99% proximal OM 3 100% proximal RCA chronic total occlusion that fills via LAD to right collaterals. 2. Normal intracardiac filling pressure 3. Successful PCI of mid circumflex/OM 3 bifurcation with 2 drug-eluting stents (T formationcircumflex 2.5 x 38 postdilated with 3.0 NC, OM3 2.25 x 18 Glenn). 4. Successful PCI of proximal first diagonal (2.5 x 12 mm Glenn) Stand-Alone Forms: [employer], Smoking Cessation Medications and DC Order Prescriptions: New prasugrel [Effient] 10 mg Tablet 10 mg PO QAM Qty: 30 RF: 0 Jardiance 25 mg tablet 25 mg PO DAILY Qty: 30 RF: 0 Continued atorvastatin 40 mg tablet 40 mg PO DAILY RF: 0 carvedilol 6.25 mg tablet 6.25 mg PO Q12 RF: 0 aspirin [Aspirin Low Dose] 81 mg Tablet,Delayed Release (Dr/Ec) 81 mg PO DAILY RF: 0 metformin 1,000 mg tablet 1,000 mg PO BID RF: 0 lisinopril 5 mg tablet 5 mg PO DAILY RF: 0 Discontinued Jardiance 10 mg tablet 10 mg PO DAILY RF: 0 Discharge Orders: Discharge Order (Routine); Ordered 07/09/20 Ordered By: London Reynolds/Other Patient Handouts: Diabetes and Heart Disease, Diabetes Shopping Preparing Meals, Cardiac Rehab Exercise Program, CAD, Heart Attack Dc, Exercising After a Heart Attack, Heart Attack Meds, Heart Attack Questions, Heart Attack resuming Sex Admission Data Admit Date/Time: 07/08/20 02:42 Attending Provider: London Briones Admit Provider: Giuliano Moon Primary Care Provider: PCP,NO Other Providers: Giuliano Moon ; Sebas Faulkner Coding Level of Care Code D/C Day Management >30 mins Diagnoses CAD (coronary artery disease), [place] coronary artery I25.10 Hypertension I10 History of MA (myocardial infarction) I25.2 Chest pain R07.9 Chest pain type: unspecified Elevated troponin I level R77.8 Hyperlipidemia LDL goal <70 E78.5 Diabetes mellitus E11.9
--- NOTE | 2020-07-09 15:13 | Electrocardiogram Report ---
Test Reason : Blood Pressure : / mmHG Vent. Rate : 070 BPM Atrial Rate : 070 BPM P-R Int : 164 ms QRS Dur : 078 ms QT Int : 404 ms P-R-T Axes : 075 047 067 degrees QTc Int : 436 ms Normal sinus rhythm Low voltage QRS Nonspecific ST abnormality Abnormal ECG When compared with ECG of 08-JUL-2020 06:19, No significant change was found Confirmed by Jeb Nava ([id number]) on 07/09/2020 3:12:55 PM Referred By: REFERRED SELF Confirmed By:Jeb Nava
--- NOTE | 2020-07-09 15:26 | Electrocardiogram Report ---
Test Reason : Blood Pressure : / mmHG Vent. Rate : 064 BPM Atrial Rate : 064 BPM P-R Int : 156 ms QRS Dur : 082 ms QT Int : 408 ms P-R-T Axes : 070 035 071 degrees QTc Int : 420 ms Normal sinus rhythm Low voltage QRS Otherwise Normal ECG When compared with ECG of 08-JUL-2020 15:10, (unconfirmed) No significant change was found Confirmed by Jeb Nava ([id number]) on 07/09/2020 3:25:26 PM Referred By: REFERRED SELF Confirmed By:Jeb Nava
[2020-07-10] MEDS ORDERED: PRASugrel TAB 10 MG TAB PO SCH (09:00)
== END 2020-07-09 09:55 | disposition home or self-care (01) | DRG 247 ==
LOC: ED 21:02 → 2S 07-08 02:42 → SUATTDRO 07-08 02:42 → 2S 07-08 03:57